=== PATIENT | female | born 1990 | race African-American/Black ===

== ENCOUNTER 2023-05-31 10:38 | Emergency (ER) | payer MEDICAID ==
[~2023-05-31] VITALS: Ht 152.4 cm; Wt 69.5 kg
[~2023-05-31 10:38] MED LIST: ALBU18HF12 IH; LIDO700A15 TP; METH-659 PO; PERCT PO
[2023-05-31 10:51] VITALS: TEMP 98.5
[2023-05-31] MEDS ORDERED: HYDR30CR39 TP ×2 (10:53→12:59)
[2023-05-31] MEDS ORDERED: TRAM50TA5 PO (12:59)
[2023-05-31] MEDS: TraMADol HCL 50 MG TABLET PO ONE (13:01)
[2023-05-31] MEDS ORDERED: SELE120S2 TP (13:01)
[2023-05-31 13:24] VITALS: BP 124/78; PULSE 72; RESP 18
== END 2023-05-31 13:25 | disposition home or self-care (01) ==
LOC: EMS 11:12
DX: M25.572 Pain in left ankle and joints of left foot (principal); L30.9 Dermatitis, unspecified; J45.909 Unspecified asthma, uncomplicated; F12.90 Cannabis use, unspecified, uncomplicated; Z88.6 Allergy status to analgesic agent; Z98.890 Other specified postprocedural states
CPT/HCPCS: 99283

== ENCOUNTER 2023-07-19 08:46 | Emergency (ER) | payer MEDICAID ==
[~2023-07-19] VITALS: Ht 154.9 cm; Wt 79.5 kg
[~2023-07-19 08:46] MED LIST changes: +HYDR30CR39 TP; -LIDO700A15 TP; -METH-659 PO; -PERCT PO; +SELE120S2 TP; +TRAM50TA5 PO
[2023-07-19 08:55] VITALS: BP 132/76; PULSE 74; RESP 16; TEMP 97.9
[2023-07-19 09:24] LABS: APPEARANCE,URINE CLEAR (CLEAR); BILIRUBIN,URINE NEGATIVE (NEGATIVE); COLOR,URINE LIGHT YELLOW (YELLOW); GLUCOSE, URINE (UA) NEGATIVE (NEGATIVE); KETONES,URINE 40-60 mg/dL (NEGATIVE); LEUKOCYTE ESTERASE ,URINE MODERATE (NEGATIVE); NITRATE,URINE NEGATIVE (NEGATIVE); OCCULT BLOOD,URINE NEGATIVE (NEGATIVE); PH,URINE 6.5 (5.0-8.0); PROTEIN,URINE TRACE mg/dL (NEGATIVE); SPECIFIC GRAVITIY, URINE 1.022 (1.003-1.030); UROBILINOGEN,URINE <=1.0 mg/dL (<=1.0)
[2023-07-19 09:25] LABS: BASOPHILS % (AUTO) 0.6 % (0.0-2.0); EOSINOPHILS % (AUTO) 0.2 % (1.0-6.0); HEMATOCRIT 39.5 % (36-46); HEMOGLOBIN 13.6 g/dL (12.0-16.0); LYMPHOCYTES # (AUTO) 2.3 K/uL (1.0-4.8); LYMPHOCYTES % (AUTO) 18.1 % (22.0-44.0); MEAN CORPUSCULAR HEMOGLOBIN 31.3 pg (26.0-34.0); MEAN CORPUSCULAR HGB CONC 34.4 G/dL (31.0-37.0); MEAN CORPUSCULAR VOLUME 91 fL (80-100); MONOCYTES # (AUTO) 0.7 K/uL (0.1-1.0); MONOCYTES % (AUTO) 5.5 % (2.0-9.0); NEUTROPHILS # (AUTO) 9.7 K/uL (1.8-7.7); NEUTROPHILS % (AUTO) 75.6 % (40.0-70.0); PLATELET COUNT (AUTO) 334 K/uL (150-450); RED BLOOD CELL COUNT(AUTO) 4.34 MIL/uL (4.00-5.20); WHITE BLOOD COUNT (AUTO) 12.8 K/uL (4.5-11.0)
[2023-07-19 09:30] LABS: ANION GAP 9 mmol/L (8-16); CALCIUM, TOTAL 9.7 mg/dL (8.8-10.5); CARBON DIOXIDE 27 mmol/L (22-29); CHLORIDE 101 mmol/L (98-107); GLOMERULAR FILTR. RATE CALC > 60 mL/min (>60); GLUCOSE,RANDOM 133 mg/dL (70-110); POTASSIUM 3.7 mmol/L (3.5-5.1); SODIUM SERUM 137 mmol/L (136-145); UREA NITROGEN, BLOOD 7 mg/dL (7-18)
[2023-07-19 09:36] LABS: BACTERIA,URINE Moderate /HPF (None Seen); RBC,URINE 0-2 /HPF (0-2)
[2023-07-19 09:37] LABS: SQUAMOUS EPITHELIAL CELL,UR Moderate /LPF (None Seen)
[2023-07-19 09:41] LABS: HCG,QUANTITATIVE 1 mIU/mL (0-6); LIPASE 26 U/L (16-77)
[2023-07-19] MEDS ORDERED: CEPH-558 PO (13:15)
[2023-07-19] MEDS: CefTRIAXone SODIUM 1 GM/VIAL IM ONE (13:20)
[2023-07-19] MEDS: LIDOCAINE/PF 1% 2 ML VIAL IM ONE (13:21)
[2023-07-19] MEDS: OxyCODONE HCL/ACETAMINOPHEN 5-325 MG TABLET PO ONE (13:21)
== END 2023-07-19 13:31 | disposition home or self-care (01) ==
LOC: EMS 08:46
DX: N83.299 Other ovarian cyst, unspecified side (principal); R10.9 Unspecified abdominal pain; J45.909 Unspecified asthma, uncomplicated; F12.90 Cannabis use, unspecified, uncomplicated; Z88.6 Allergy status to analgesic agent
CPT/HCPCS: 99285; 76856; 80048; 81001; 83690; 84702; 85025; 36415; 87086; 87186; 96372; J0696; J3490

== ENCOUNTER 2024-11-21 09:45 | Emergency (ER) | payer MEDICAID, OTHER ==
[~2024-11-21] VITALS: Ht 152.4 cm; Wt 78.6 kg
[~2024-11-21 09:45] MED LIST changes: -ALBU18HF12 IH; +CEPH-558 PO; -HYDR30CR39 TP; -SELE120S2 TP; -TRAM50TA5 PO
[2024-11-21 11:45] VITALS: BP 116/89; PULSE 76; RESP 18; TEMP 98.2; O2SAT 99
[2024-11-21] MEDS ORDERED: TRAM50TA5 PO (12:10)
== END 2024-11-21 12:39 | disposition home or self-care (01) ==
LOC: EMS 09:45
DX: M26.602 Left temporomandibular joint disorder, unspecified (principal); R68.84 Jaw pain; F12.90 Cannabis use, unspecified, uncomplicated; J45.909 Unspecified asthma, uncomplicated; Z88.6 Allergy status to analgesic agent; Z98.890 Other specified postprocedural states
CPT/HCPCS: 70110; 99283

== ENCOUNTER 2025-01-14 07:20 | Emergency (ER) | payer OTHER ==
[~2025-01-14] VITALS: Ht 152.4 cm; Wt 70.9 kg
[~2025-01-14 07:20] MED LIST changes: -CEPH-558 PO; +TRAM50TA5 PO
[2025-01-14 07:21] VITALS: BP 114/75; PULSE 87; RESP 16; TEMP 98.5; O2SAT 100
[2025-01-14 07:46] LABS: APPEARANCE,URINE HAZY (CLEAR); GLUCOSE, URINE (UA) NEGATIVE (NEGATIVE); LEUKOCYTE ESTERASE ,URINE LARGE (NEGATIVE); NITRATE,URINE NEGATIVE (NEGATIVE); OCCULT BLOOD,URINE NEGATIVE (NEGATIVE); SPECIFIC GRAVITIY, URINE 1.028 (1.003-1.030)
[2025-01-14 08:17] LABS: SQUAMOUS EPITHELIAL CELL,UR Many /LPF (None Seen)
[2025-01-14] MEDS ORDERED: TRIA15CR49 TP (08:26)
[2025-01-14] MEDS ORDERED: DIPH50CA37 PO (08:26)
[2025-01-14] MEDS ORDERED: CEPH-558 PO (08:26)
[2025-01-14] MEDS ORDERED: PERM60CR21 TP (08:26)
[2025-01-14] MEDS ORDERED: HYDR30CR39 TP (08:26)
[2025-01-14] MEDS ORDERED: PHEN-674 PO (08:26)
== END 2025-01-14 08:47 | disposition home or self-care (01) ==
LOC: EMS 07:20
DX: L30.9 Dermatitis, unspecified (principal); N39.0 Urinary tract infection, site not specified; F12.90 Cannabis use, unspecified, uncomplicated; J45.909 Unspecified asthma, uncomplicated; Z88.6 Allergy status to analgesic agent; Z98.890 Other specified postprocedural states
CPT/HCPCS: 81001; 87086; 99283